=== PATIENT | female | born 2000 | race Hispanic/Latino ===

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

== ENCOUNTER 2020-01-14 06:32 | Emergency (ER) | payer OTHER, SELFPAY ==
[2020-01-14 06:44] VITALS: BP 136/85; PULSE 88; RESP 16; TEMP 37.1; O2SAT 99; BMI 25.7
--- NOTE | 2020-01-14 06:55 | ED.NAVMDI ---
HPI - Nausea/Vomiting/Diarrhea General Chief complaint: Nausea/Vomiting/Diarrhea Stated complaint: Light headed, dizziness,Diarrhea, stomach cramps Time Seen by Provider: 01/14/20 06:43 Source: patient Mode of arrival: Family Vehicle History of Present Illness HPI Narrative: 19-year-old presents with 2 weeks of nausea, vomiting for a week, increasing anxiety and general malaise. She states that she has not been eating or drinking in feels dizzy when she stands up. She was supposed to start her period on January 03, had some spotting on January 06 think continues to have some spotting that is not even requiring panty liners according to her. Apparently she had a miscarriage last summer with subsequent depression followed by some counseling and she feels like she has moved past at issue. On presentation today she has a dramatic affect of behavior with significant hyperventilation and poor eye contact. She was seen by her primary care physician on Sunday who suggested a watch and wait approach, she was seen at [facility] emergency room yesterday with labs fluids Zofran and a reassurance that all was well in presents here today with similar complaints. She reports no fevers, no cough, no lower extremity edema. She states that after the Zofran wore off yesterday she was not nauseated but she was worried she might be so she still did not eat anything yesterday. With the decreased eating she has had decreased bowel movements but no specific constipation or diarrhea. With the vomitus some of it has been somewhat bilious there has been no blood. Related Data Previous Rx's Medication Instructions Recorded albuterol sulfate 90 mcg/actuation 2 puff INHALATION Q4-6H PRN #8 gram 11/02/19 aerosol inhaler azithromycin 250 mg tablet See Rx Instructions PO .COMPLEX #6 11/02/19 tab inhalational spacing device #1 each 11/02/19 Allergies Allergy/AdvReac Type Severity Reaction Status Date / Time Penicillins Allergy Intermediate trouble Verified 11/02/19 12:02 breathing Review of Systems Review of Systems Narrative: Pertinent positive and negative findings as per HPI significant overall anxiety, unclear the source of her anxiety Remainder of review of systems is otherwise unremarkable for Constitutional: weakness ENT: No sore throat, neck pain, ear pain CV: Chest pain, palpitations, dyspnea on exertion Respiratory: Cough, wheeze, MS: Muscle weakness, numbness, Skin: Rashes, nonhealing lesions Neuro: Syncope, Endocrine: heat or cold intolerance, very dry skin Heme: Easy bruising or bleeding Allergy: Seasonal rhinorrhea, itchy eyes Patient History Social History Smoking Status: Never smoker Smoking Status: Never smoker alcohol intake frequency: 0-2 drinks per day Substance Use Type: does not use Exam Initial Vital Signs Initial Vital Signs: Vital Signs Temperature 98.7 F 01/14/20 06:44 Pulse Rate 88 01/14/20 06:44 Respiratory Rate 16 01/14/20 06:44 Blood Pressure 136/85 01/14/20 06:44 Pulse Oximetry 99 01/14/20 06:44 Course Orders Ordered: Discontinued Medications Sodium Chloride (Normal Saline 0.9%) 1,000 mls @ 1,000 mls/hr IV BOLUS ONE Stop: 01/14/20 07:59 Last Infusion: 01/14/20 09:05 Dose: 0 mls/hr Documented by: Admin: 01/14/20 07:39 Dose: 1,000 mls/hr Documented by: TOÑA Lorazepam (Ativan) 0.5 mg IV NOW ONE Stop: 01/14/20 07:01 Last Admin: 01/14/20 07:41 Dose: 0.5 mg Documented by: TOÑA Ondansetron HCl (Zofran) 4 mg IV NOW ONE Stop: 01/14/20 07:01 Last Admin: 01/14/20 07:41 Dose: 4 mg Documented by: TOÑA Vital Signs Vital signs: Vital Signs - 8 hr 01/14/20 06:44 Temperature 98.7 F Pulse Rate 88 Respiratory Rate 16 Blood Pressure 136/85 Pulse Oximetry 99 MDM - Nausea/Vomiting/Diarrhea Lab Data Lab results narrative: Urine test is negative Result diagrams: 01/14/20 07:30 01/14/20 07:30 Labs: Lab Results 01/14/20 01/14/20 Range/Units 07:30 07:30 WBC 4.4 L (4.5-11.0) X10^3/uL RBC 4.78 (4.0-5.2) X10^6/uL Hgb 14.3 (12.0-16.0) g/dL Hct 42.9 (36-46) % MCV 89.9 (80-100) fL MCH 29.9 (26-34) PG MCHC 33.3 (30-36) % RDW 13.5 (11.6-14.8) % Plt Count 253 (150-400) X10^3/uL Neut % (Auto) 55.0 (50-75) % Lymph % (Auto) 34.6 (25-40) % Esmeralda % (Auto) 8.3 (3-14) % Eos % (Auto) 1.4 L (2-4) % Baso % (Auto) 0.7 (0-2) % Neut # (Auto) 2400 (7511-4726) /uL Lymph # (Auto) 1500 (7168-3015) /uL Esmeralda # (Auto) 400 (0-900) /uL Eos # (Auto) 100 (0-450) /uL Baso # (Auto) 0 (0-100) /uL Sodium 141 (137-145) mmol/L Potassium 3.8 (3.4-5.1) mmol/L Chloride 110 H (98-107) mmol/L Carbon Dioxide 22 (22-32) mmol/L BUN 7 (7-17) mg/dL Creatinine 0.76 (0.52-1.04) mg/dL Estimated GFR > 60.0 (>60) mL/min BUN/Creatinine Ratio 9.2 (6-22) Glucose 101 H (70-100) mg/dL Calcium 10.1 (8.4-10.2) mg/dL Total Bilirubin 0.7 (0.2-1.3) mg/dL AST 22 (14-36) IU/L ALT 13 (<35) IU/L Alkaline Phosphatase 52 (38-126) U/L Total Protein 8.2 (6.3-8.2) g/dL Albumin 4.9 (3.5-5.0) g/dL Globulin 3.3 (1.7-4.1) g/dL Albumin/Globulin Ratio 1.5 (1.0-2.8) Point of Care Testing Test Results Negative Urine Dip Bedside Urine Glucose Negative Bedside Urine Bilirubin - Negative Bedside Urine Ketone - Negative Urine Specific [place] 1.010 Bedside Urine Occult Blood +/- Bedside Urine pH 6.0 Bedside Urine Protein - Negative Bedside Urine Urobilinogen - Negative Bedside Urine Nitrite - Negative Bedside Urine Leukocytes - Negative Esterase Discharge Plan Departure Patient Disposition: Home Clinical Impression: Lightheadedness Discharge Date/Time: 01/14/20 09:11 Instructions: DI for Dizziness-Nonvertigo Activity Restrictions/Additional Instructions: Follow-up with your primary care physician in the next week if her symptoms have not resolved. Your labs do not show any major abnormalities today. Return to the ER for fevers greater 100.4 F, new chest pain, shortness of breath, passing out, persistent vomiting, black or bloody stools or other new or concerning symptoms. Prescriptions: No Action azithromycin 250 mg tablet See Rx Instructions PO .COMPLEX Qty: 6 RF: 0 albuterol sulfate 90 mcg/actuation HFA aerosol inhaler 2 puff INHALATION Q4-6H PRN (Reason: shortness of breath or wheezing) Qty: 8 RF: 0 (DME) Aerochamber MV Spacer See Rx Instructions .ROUTE .MEDSUPPLY Qty: 1 RF: 0 Stand Alone Forms: Work Release Note
[2020-01-14 07:38] LABS: Add Manual Diff / Slide Review NO; Basophils Absolute Auto 0 /uL (0-100); Basophils Percent Auto 0.7 % (0-2); Eosinophils Absolute Auto 100 /uL (0-450); Eosinophils Percent Auto 1.4 % (2-4); Hematocrit 42.9 % (36-46); Hemoglobin 14.3 g/dL (12.0-16.0); Lymphocytes Absolute Auto 1500 /uL (1100-4500); Lymphocytes Percent Auto 34.6 % (25-40); Mean Corpuscular HGB Conc 33.3 % (30-36); Mean Corpuscular Hemoglobin 29.9 PG (26-34); Mean Corpuscular Volume 89.9 fL (80-100); Monocytes Absolute Auto 400 /uL (0-900); Monocytes Percent Auto 8.3 % (3-14); Neutrophils Absolute Auto 2400 /uL (1500-7000); Platelet Count 253 X10^3/uL (150-400); Red Blood Cell Count 4.78 X10^6/uL (4.0-5.2); Red Cell Distribution Width 13.5 % (11.6-14.8); White Blood Cell Count 4.4 X10^3/uL (4.5-11.0)
[2020-01-14] MEDS: SODIUM CHLORIDE 0.9% 1,000 ML 1000 ML IV (07:39)
[2020-01-14] MEDS: LORazepam 2 MG/ML INJ 0.5 MG IV (07:41)
[2020-01-14] MEDS: ONDANSETRON 4 MG/2 ML INJ IV (07:41)
[2020-01-14 07:53] LABS: Alanine Aminotransferase 13 IU/L (<35); Albumin 4.9 g/dL (3.5-5.0); Albumin Globulin Ratio 1.5 (1.0-2.8); Alkaline Phosphatase 52 U/L (38-126); Aspartate Aminotransferase 22 IU/L (14-36); BUN Creatinine Ratio 9.2 (6-22); Bilirubin Total 0.7 mg/dL (0.2-1.3); Blood Urea Nitrogen 7 mg/dL (7-17); Calcium 10.1 mg/dL (8.4-10.2); Carbon Dioxide 22 mmol/L (22-32); Chloride 110 mmol/L (98-107); Estimated Glomerular Filt Rate > 60.0 mL/min (>60); Globulin 3.3 g/dL (1.7-4.1); Glucose 101 mg/dL (70-100); HEMOLYSIS < 15 (0-50); Potassium 3.8 mmol/L (3.4-5.1); Sodium 141 mmol/L (137-145); Total Protein 8.2 g/dL (6.3-8.2)
[2020-01-14 09:09] VITALS: BP 106/69; PULSE 88; RESP 18; O2SAT 97
== END 2020-01-14 09:11 | disposition home or self-care (01) ==
PROVIDERS: Emergency Medicine; Emergency Provider Emergency Medicine
DX: R42 Dizziness and giddiness (principal); R11.2 Nausea with vomiting, unspecified; F41.9 Anxiety disorder, unspecified
CPT/HCPCS: 80053; 81003; 81025; 85025; 96361; 96374; 96375; 99284; J2060; J2405

== ENCOUNTER 2020-08-21 10:57 | Emergency (ER) | payer OTHER, SELFPAY ==
[2020-08-21 11:18] VITALS: BP 122/71; PULSE 83; RESP 16; TEMP 36.8; O2SAT 100; BMI 21.5
--- NOTE | 2020-08-21 12:44 | ED.NAVMDI ---
HPI - Nausea/Vomiting/Diarrhea <Juan CROW RousseauP - Last Filed: 08/21/20 15:23> General Chief complaint: Nausea/Vomiting/Diarrhea Stated complaint: 12WKS , VOMITING, DEHYDRATED Time Seen by Provider: 08/21/20 11:59 Source: patient Mode of arrival: Ambulatory Limitations: no limitations History of Present Illness HPI Narrative: This is a 19-year-old female, nonsmoker, who has past medical history significant for hypothyroidism and is currently 12 week EGA with presents to ED with chief complain of nausea and vomiting. Patient reports she was diagnosed with hyperemesis gravidarum around 8 week EGA and since then she has frequent nausea. She reports vomiting has eased up at this time but her symptoms varies and times she is unable to tolerate food or liquid with vomiting. She was prescribed with Zofran by her primary care physician and had used this 2 days ago the last. Patient also reports slight cramping discomfort in bilateral lower abdomen without vaginal bleeding. Patient denies urinary symptoms. Patient has occasional loose stool. Patient reports associated symptoms as headaches and dizziness. Patient denies chest pain but occasional short of breath when she feels dizzy and dehydrated. Patient reports her temperature runs around 99-99.5 F but no fever. She denies chills, cough, sore throat, body aches, runny nose. She has been trying to hydrate herself with water and electrolyte drinks but it has been difficulty keeping up. Patient has been off thyroid medication for last 2 weeks after the thyroid hormone testing per chip tuner and has follow-up appointment next week. Patient sees Dr. Kirkpatrick (chip tuner) and Dr. Castillo at [facility]. Related Data Previous Rx's Medication Instructions Recorded albuterol sulfate 90 mcg/actuation 2 puff INHALATION Q4-6H PRN #8 gram 11/02/19 aerosol inhaler inhalational spacing device #1 each 11/02/19 Allergies Allergy/AdvReac Type Severity Reaction Status Date / Time amoxicillin Allergy Intermediate Verified 08/21/20 11:18 Penicillins Allergy Intermediate trouble Verified 08/21/20 11:17 breathing Review of Systems <CROW MartinezP - Last Filed: 08/21/20 15:23> Review of Systems Narrative: General: Denies fever, chills, fatigue, malaise, sweats. HEENT: Denies sinus pain, ear pain, sore throat, difficulty swallowing, (+) dizziness. Respiratory: Denies (+) occasional dyspnea when feeling dehydrated, cough, wheezing, hemoptysis, sputum. Cardiovascular: Denies chest pain, palpitations, orthopnea, edema. Gastrointestinal: See HPI : Denies dysuria, frequency, incontinence, hematuria, urinary retention. Musculoskeletal: Denies weakness, joint pain or bony pain. Skin: Denies rash, skin lesions, or other. Neurologic: Denies weakness, (+) headache, numbness, change in speech, confusion, seizures, incoordination. Psychiatric: No concerning psychosocial issues. 12-point review of systems is negative except for those stated above. Patient History <CRYSTAL Martinez - Last Filed: 08/21/20 15:23> Medical History (Updated 08/21/20 @ 14:47 by CRYSTAL Martinez) Hypothyroidism Social History Smoking Status: Never smoker Smoking Status: Never smoker alcohol intake frequency: 0-2 drinks per day Substance Use Type: marijuana (Does not use since ) Exam <CRYSTAL Martinez - Last Filed: 08/21/20 15:23> Narrative Exam Narrative: GEN: Alert, oriented x 3, well appearing and nourished, and in no acute distress. Head: Normal cephalic, atraumatic. No scalp or temporal tenderness, palpable mass or rash. EYES: Pupils are equal, round, and reactive to light and accommodation. Extraocular muscles are intact bilaterally. There is no subconjunctival hemorrhage, exudate and sclera non-icteric. ENT: Hearing grossly intact. Nose without bleeding, purulent discharge or deviation. Mucous membrane moist, no mucosal lesion. Throat without erythema, tonsillar hypertrophy or exudate. Uvula in midline, airway patent. Neck: Trachea in midline. No JVD, non-tender without lymphadenopathy. No masses or thyroid megaly. Supple, non-tender and no meningeal signs. CARDIAC: Normal regular rate and rhythm without murmurs, gallops, or rubs. No chest wall tenderness. No peripheral edema, cyanosis or pallor. Capillary refill is less than 2 seconds. RESPIRATORY: Lungs are clear to auscultate bilaterally. No cough, wheezes, rales, or rhonchi. No stridor, respiratory distress, increase work of breathing, or accessary muscle used. ABD: Abdomen soft, nontender and non-distended. No guarding or rebound tenderness to palpate. Bowel sounds are normal in all 4 quadrants. There is no palpable masses or organomegaly. FHT by dopler 162 bpm. EXT: Full painless ROM of all extremities with no loss of sensation, strength, effusion or edema. SKIN: Warm, dry, normal color for patient. No erythema, lesions or rash over visible areas. BACK: Nontender without deformity or crepitance. No flank tenderness. NEUROLOGICAL: Alert and oriented to place, time and person. Sensation and motor function intact bilaterally. No facial droops, dysphasia. PSYCHIATRIC: Good judgement and reason, without hallucinations, abnormal affect or abnormal behaviors during the examination. Patient is not suicidal. Initial Vital Signs Initial Vital Signs: Vital Signs Temperature 98.2 F 08/21/20 11:18 Pulse Rate 83 08/21/20 11:18 Respiratory Rate 16 08/21/20 11:18 Blood Pressure 122/71 08/21/20 11:18 Pulse Oximetry 100 08/21/20 11:18 <Abigail Craft DO - Last Filed: 08/22/20 07:18> Initial Vital Signs Initial Vital Signs: Vital Signs Temperature 98.2 F 08/21/20 11:18 Pulse Rate 83 08/21/20 11:18 Respiratory Rate 16 08/21/20 11:18 Blood Pressure 122/71 08/21/20 11:18 Pulse Oximetry 100 08/21/20 11:18 Scores <CRYSTAL Martinez - Last Filed: 08/21/20 15:23> GCS Nate coma scale eye opening: Spontaneous [place] coma scale verbal response: Orientated [place] coma scale motor response: Obey commands Nate coma scale total score: 15 Course <CRYSTAL Martinez - Last Filed: 08/21/20 15:23> Orders Ordered: Discontinued Medications Sodium Chloride (Normal Saline 0.9%) 1,000 mls @ 1,000 mls/hr IV BOLUS ONE Stop: 08/21/20 13:12 Last Infusion: 08/21/20 14:32 Dose: 0 mls/hr Documented by: Admin: 08/21/20 13:34 Dose: 1,000 mls/hr Documented by: JAMIE Ondansetron HCl (Ondansetron 4 Mg/2 Ml Inj) 4 mg IV NOW ONE Stop: 08/21/20 12:14 Last Admin: 08/21/20 13:34 Dose: 4 mg Documented by: JAMIE Reevaluation(s) Reevaluation #1: Patient reports nausea has improved at this time. Ice chips and juice provided for p.o. challenge. Time: 14:05 Vital Signs Vital signs: Vital Signs - 8 hr 08/21/20 11:18 08/21/20 13:00 08/21/20 13:30 Temperature 98.2 F Pulse Rate 83 63 69 Respiratory Rate 16 Blood Pressure 122/71 108/64 101/59 L Pulse Oximetry 100 100 100 08/21/20 14:00 08/21/20 14:30 Temperature Pulse Rate 82 70 Respiratory Rate 16 16 Blood Pressure 110/65 106/61 Pulse Oximetry 100 100 <Abigail Craft DO - Last Filed: 08/22/20 07:18> Orders Ordered: Discontinued Medications Sodium Chloride (Normal Saline 0.9%) 1,000 mls @ 1,000 mls/hr IV BOLUS ONE Stop: 08/21/20 13:12 Last Infusion: 08/21/20 14:32 Dose: 0 mls/hr Documented by: Admin: 08/21/20 13:34 Dose: 1,000 mls/hr Documented by: JAMIE Ondansetron HCl (Ondansetron 4 Mg/2 Ml Inj) 4 mg IV NOW ONE Stop: 08/21/20 12:14 Last Admin: 08/21/20 13:34 Dose: 4 mg Documented by: JAMIE Vital Signs Vital signs: Vital Signs - 8 hr 08/21/20 11:18 08/21/20 13:00 08/21/20 13:30 Temperature 98.2 F Pulse Rate 83 63 69 Respiratory Rate 16 Blood Pressure 122/71 108/64 101/59 L Pulse Oximetry 100 100 100 08/21/20 14:00 08/21/20 14:30 Temperature Pulse Rate 82 70 Respiratory Rate 16 16 Blood Pressure 110/65 106/61 Pulse Oximetry 100 100 MDM - Nausea/Vomiting/Diarrhea <Juan Hilario-Oras [employer]PERATOR - Last Filed: 08/21/20 15:23> Differential Diagnosis Differential diagnosis: Likely dehydration and other (Hyperemesis gravidarum, UTI, electrolytes imbalance) Medical Records Attestation: I reviewed the patient's medical records. Lab Data Attestation: I reviewed the patient's lab results. Result diagrams: 08/21/20 13:17 08/21/20 13:17 Labs: Lab Results 08/21/20 08/21/20 08/21/20 Range/Units 13:17 13:17 13:17 WBC 7.4 (4.5-11.0) X10^3/uL RBC 4.51 (4.0-5.2) X10^6/uL Hgb 13.4 (12.0-16.0) g/dL Hct 39.7 (36-46) % MCV 88.0 (80-100) fL MCH 29.6 (26-34) PG MCHC 33.7 (30-36) % RDW 13.2 (11.6-14.8) % Plt Count 240 (150-400) X10^3/uL Neut % (Auto) 74.2 (50-75) % Lymph % (Auto) 20.7 L (25-40) % [place] % (Auto) 4.5 (3-14) % Eos % (Auto) 0.3 L (2-4) % Baso % (Auto) 0.3 (0-2) % Neut # (Auto) 5500 (9425-3273) /uL Lymph # (Auto) 1500 (5473-9893) /uL [place] # (Auto) 300 (0-900) /uL Eos # (Auto) 0 (0-450) /uL Baso # (Auto) 0 (0-100) /uL Sodium 134 L (137-145) mmol/L Potassium 3.8 (3.4-5.1) mmol/L Chloride 103 (98-107) mmol/L Carbon Dioxide 24 (22-32) mmol/L BUN 8 (7-17) mg/dL Creatinine 0.43 L (0.52-1.04) mg/dL Estimated GFR > 60.0 (>60) mL/min BUN/Creatinine Ratio 18.6 (6-22) Glucose 79 (70-100) mg/dL Calcium 9.1 (8.4-10.2) mg/dL Total Bilirubin 0.4 (0.2-1.3) mg/dL AST 20 (14-36) IU/L ALT 12 (<35) IU/L Alkaline Phosphatase 37 L (38-126) U/L Total Protein 7.1 (6.3-8.2) g/dL Albumin 4.0 (3.5-5.0) g/dL Globulin 3.1 (1.7-4.1) g/dL Albumin/Globulin Ratio 1.3 (1.0-2.8) Lipase 43 (23-300) U/L COVID-19 PCR (Negative) 08/21/20 Range/Units 14:02 WBC (4.5-11.0) X10^3/uL RBC (4.0-5.2) X10^6/uL Hgb (12.0-16.0) g/dL Hct (36-46) % MCV (80-100) fL MCH (26-34) PG MCHC (30-36) % RDW (11.6-14.8) % Plt Count (150-400) X10^3/uL Neut % (Auto) (50-75) % Lymph % (Auto) (25-40) % Jewell % (Auto) (3-14) % Eos % (Auto) (2-4) % Baso % (Auto) (0-2) % Neut # (Auto) (8140-5431) /uL Lymph # (Auto) (9146-6464) /uL Jewell # (Auto) (0-900) /uL Eos # (Auto) (0-450) /uL Baso # (Auto) (0-100) /uL Sodium (137-145) mmol/L Potassium (3.4-5.1) mmol/L Chloride (98-107) mmol/L Carbon Dioxide (22-32) mmol/L BUN (7-17) mg/dL Creatinine (0.52-1.04) mg/dL Estimated GFR (>60) mL/min BUN/Creatinine Ratio (6-22) Glucose (70-100) mg/dL Calcium (8.4-10.2) mg/dL Total Bilirubin (0.2-1.3) mg/dL AST (14-36) IU/L ALT (<35) IU/L Alkaline Phosphatase (38-126) U/L Total Protein (6.3-8.2) g/dL Albumin (3.5-5.0) g/dL Globulin (1.7-4.1) g/dL Albumin/Globulin Ratio (1.0-2.8) Lipase (23-300) U/L COVID-19 PCR Negative (Negative) Point of Care Testing Test Results Positive Urine Dip Bedside Urine Glucose Negative Bedside Urine Bilirubin - Negative Bedside Urine Ketone +/- 5 Urine Specific [place] 1.025 Bedside Urine Occult Blood - Negative Bedside Urine pH 6.0 Bedside Urine Protein +/- 15 Bedside Urine Urobilinogen - Negative Bedside Urine Nitrite - Negative Bedside Urine Leukocytes - Negative Esterase MDM Narrative Medical decision making narrative: 19-year-old female who is currently 19 weeks +3 day EGA with presents to ED with ongoing nausea and occasional vomiting since 8th week EGA. Patient had used Zofran 2 days ago but without much improvement and she is here reporting feeling dehydrated and could not keep with hydration with water and electrolyte drink with symptoms of lightheadedness and headache. Patient also reports low abdominal cramping pain without vaginal bleeding. heart tone in 162 beats per minute. Physical exam on abdomen was unremarkable. No leukocytosis. Electrolyte significant for mildly decreased sodium level of 134 with normal kidney function, lipase, LFTs. No indication for UTI but had positive ketones. Since this is 1st visit to [facility] after this initially urine test was ordered for which was positive. Patient was medicated with Zofran, IV fluid 1 L and reports feeling much improved without headache or dizziness. Patient was able to tolerate fluids and ice chips without vomiting. Advised patient to use Zofran as needed and she could up the dose. Also discussed sure today's visit with her primary care physician/OBGYN and consider using vitamin B6 supplements and doxylamine as needed, rica candy as needed. Patient informed usually after 1st trimester nausea improves. Patient advise hydrate adequately with return precautions and she verbalized understanding in agreement with the treatment plan. <Abigail Craft, DO - Last Filed: 08/22/20 07:18> Lab Data Labs: Lab Results 08/21/20 08/21/20 08/21/20 Range/Units 13:17 13:17 13:17 WBC 7.4 (4.5-11.0) X10^3/uL RBC 4.51 (4.0-5.2) X10^6/uL Hgb 13.4 (12.0-16.0) g/dL Hct 39.7 (36-46) % MCV 88.0 (80-100) fL MCH 29.6 (26-34) PG MCHC 33.7 (30-36) % RDW 13.2 (11.6-14.8) % Plt Count 240 (150-400) X10^3/uL Neut % (Auto) 74.2 (50-75) % Lymph % (Auto) 20.7 L (25-40) % Jewell % (Auto) 4.5 (3-14) % Eos % (Auto) 0.3 L (2-4) % Baso % (Auto) 0.3 (0-2) % Neut # (Auto) 5500 (3226-8597) /uL Lymph # (Auto) 1500 (4378-5157) /uL [place] # (Auto) 300 (0-900) /uL Eos # (Auto) 0 (0-450) /uL Baso # (Auto) 0 (0-100) /uL Sodium 134 L (137-145) mmol/L Potassium 3.8 (3.4-5.1) mmol/L Chloride 103 (98-107) mmol/L Carbon Dioxide 24 (22-32) mmol/L BUN 8 (7-17) mg/dL Creatinine 0.43 L (0.52-1.04) mg/dL Estimated GFR > 60.0 (>60) mL/min BUN/Creatinine Ratio 18.6 (6-22) Glucose 79 (70-100) mg/dL Calcium 9.1 (8.4-10.2) mg/dL Total Bilirubin 0.4 (0.2-1.3) mg/dL AST 20 (14-36) IU/L ALT 12 (<35) IU/L Alkaline Phosphatase 37 L (38-126) U/L Total Protein 7.1 (6.3-8.2) g/dL Albumin 4.0 (3.5-5.0) g/dL Globulin 3.1 (1.7-4.1) g/dL Albumin/Globulin Ratio 1.3 (1.0-2.8) Lipase 43 (23-300) U/L COVID-19 PCR (Negative) 08/21/20 Range/Units 14:02 WBC (4.5-11.0) X10^3/uL RBC (4.0-5.2) X10^6/uL Hgb (12.0-16.0) g/dL Hct (36-46) % MCV (80-100) fL MCH (26-34) PG MCHC (30-36) % RDW (11.6-14.8) % Plt Count (150-400) X10^3/uL Neut % (Auto) (50-75) % Lymph % (Auto) (25-40) % [place] % (Auto) (3-14) % Eos % (Auto) (2-4) % Baso % (Auto) (0-2) % Neut # (Auto) (3109-4448) /uL Lymph # (Auto) (9653-9405) /uL Jewell # (Auto) (0-900) /uL Eos # (Auto) (0-450) /uL Baso # (Auto) (0-100) /uL Sodium (137-145) mmol/L Potassium (3.4-5.1) mmol/L Chloride (98-107) mmol/L Carbon Dioxide (22-32) mmol/L BUN (7-17) mg/dL Creatinine (0.52-1.04) mg/dL Estimated GFR (>60) mL/min BUN/Creatinine Ratio (6-22) Glucose (70-100) mg/dL Calcium (8.4-10.2) mg/dL Total Bilirubin (0.2-1.3) mg/dL AST (14-36) IU/L ALT (<35) IU/L Alkaline Phosphatase (38-126) U/L Total Protein (6.3-8.2) g/dL Albumin (3.5-5.0) g/dL Globulin (1.7-4.1) g/dL Albumin/Globulin Ratio (1.0-2.8) Lipase (23-300) U/L COVID-19 PCR Negative (Negative) Point of Care Testing Test Results Positive Urine Dip Bedside Urine Glucose Negative Bedside Urine Bilirubin - Negative Bedside Urine Ketone +/- 5 Urine Specific [place] 1.025 Bedside Urine Occult Blood - Negative Bedside Urine pH 6.0 Bedside Urine Protein +/- 15 Bedside Urine Urobilinogen - Negative Bedside Urine Nitrite - Negative Bedside Urine Leukocytes - Negative Esterase Discharge Plan Departure Patient Disposition: Home Clinical Impression: Nausea and vomiting during Instructions: Nausea of (Alternative Therapy), DI for Hyperemesis Gravidarum Activity Restrictions/Additional Instructions: You have been diagnosed with [nausea and vomiting during 1st trimester. You were hydrated with IV fluid and received Zofran 1 dose. Will to tolerate ice chips and clear liquid ED. mildly low in sodium level which you have received replacement through IV fluid. You can use Zofran as needed up to 8 mg for severe nausea. COVID test was negative and no indications for urinary tract infection]. What to do: *Take your medications as directed. *Follow up with your primary care provider in 2-3 days, call for an appointment. Let them know you were seen in the ED and that we asked you to be seen in follow up. *Return to ED if you have any new, worsening, or concerning symptoms, such as [chest pain, breathing difficulty, unable to tolerate fluids, feeling severely dehydrated, vaginal bleeding, abdominal pain or any acute concerns]. Prescriptions: No Action albuterol sulfate 90 mcg/actuation HFA aerosol inhaler 2 puff INHALATION Q4-6H PRN (Reason: shortness of breath or wheezing) Qty: 8 RF: 0 (DME) Aerochamber MV Spacer See Rx Instructions .ROUTE .MEDSUPPLY Qty: 1 RF: 0 Referrals: Zee Juan MD [Physician] - <Abigail Craft DO - Last Filed: 08/22/20 07:18> Cosign ED Attending Pam Attestation: I was immediately available in the department for consultation. Documentation has been reviewed. I agree with assessment and plan.
[2020-08-21 13:00] VITALS: BP 108/64; PULSE 63; O2SAT 100
[2020-08-21 13:27] LABS: Add Manual Diff / Slide Review NO; Basophils Absolute Auto 0 /uL (0-100); Basophils Percent Auto 0.3 % (0-2); Eosinophils Absolute Auto 0 /uL (0-450); Eosinophils Percent Auto 0.3 % (2-4); Hematocrit 39.7 % (36-46); Hemoglobin 13.4 g/dL (12.0-16.0); Lymphocytes Absolute Auto 1500 /uL (1100-4500); Lymphocytes Percent Auto 20.7 % (25-40); Mean Corpuscular HGB Conc 33.7 % (30-36); Mean Corpuscular Hemoglobin 29.6 PG (26-34); Monocytes Absolute Auto 300 /uL (0-900); Monocytes Percent Auto 4.5 % (3-14); Neutrophils Absolute Auto 5500 /uL (1500-7000); Neutrophils Percent Auto 74.2 % (50-75); Platelet Count 240 X10^3/uL (150-400); Red Blood Cell Count 4.51 X10^6/uL (4.0-5.2); Red Cell Distribution Width 13.2 % (11.6-14.8); White Blood Cell Count 7.4 X10^3/uL (4.5-11.0)
[2020-08-21 13:30] VITALS: BP 101/59; PULSE 69; O2SAT 100
[2020-08-21] MEDS: SODIUM CHLORIDE 0.9% 1,000 ML 1000 ML IV (13:34)
[2020-08-21] MEDS: ONDANSETRON 4 MG/2 ML INJ IV (13:34)
[2020-08-21 13:39] LABS: Alanine Aminotransferase 12 IU/L (<35); Albumin Globulin Ratio 1.3 (1.0-2.8); Alkaline Phosphatase 37 U/L (38-126); Aspartate Aminotransferase 20 IU/L (14-36); BUN Creatinine Ratio 18.6 (6-22); Bilirubin Total 0.4 mg/dL (0.2-1.3); Blood Urea Nitrogen 8 mg/dL (7-17); Calcium 9.1 mg/dL (8.4-10.2); Carbon Dioxide 24 mmol/L (22-32); Chloride 103 mmol/L (98-107); Estimated Glomerular Filt Rate > 60.0 mL/min (>60); Globulin 3.1 g/dL (1.7-4.1); Glucose 79 mg/dL (70-100); HEMOLYSIS < 15 (0-50); Lipase 43 U/L (23-300); Potassium 3.8 mmol/L (3.4-5.1); Sodium 134 mmol/L (137-145); Total Protein 7.1 g/dL (6.3-8.2)
[2020-08-21 14:00] VITALS: BP 110/65; PULSE 82; RESP 16; O2SAT 100
[2020-08-21 14:23] LABS: COVID19 -Nasal RAPID Negative (Negative)
[2020-08-21 14:30] VITALS: BP 106/61; PULSE 70; RESP 16; O2SAT 100
== END 2020-08-21 15:02 | disposition home or self-care (01) ==
PROVIDERS: Emergency Provider Nurse Practitioner Family
DX: O21.0 Mild hyperemesis gravidarum (principal); Z3A.12 12 weeks gestation of pregnancy; E03.9 Hypothyroidism, unspecified
CPT/HCPCS: 36415; 80053; 81003; 81025; 83690; 85025; 87635; 96361; 96374; 99281; 99284; J2405

== ENCOUNTER → 2025-04-08 08:46 | Outpatient (CLI) | payer OTHER, SELFPAY ==
[2025-04-08 11:33] LABS: Influenza A - CEPHEID Flu A NEGATIVE (NEGATIVE); Influenza B - CEPHEID Flu B NEGATIVE (NEGATIVE)
[2025-04-08 12:01] LABS: COVID-19 CEPHEID 4-PLEX PCR POSITIVE (Negative)
== END ==
PROVIDERS: Visit Provider Family Medicine
DX: R05.9 Cough, unspecified (principal); J34.89 Other specified disorders of nose and nasal sinuses
CPT/HCPCS: 87637

== ENCOUNTER → 2025-07-19 16:11 | Outpatient (CLI) | payer OTHER, SELFPAY ==
[2025-07-19 17:16] LABS: Influenza A - CEPHEID Flu A NEGATIVE (NEGATIVE); Influenza B - CEPHEID Flu B NEGATIVE (NEGATIVE)
[2025-07-19 17:33] LABS: COVID-19 CEPHEID 4-PLEX PCR Negative (Negative)
== END ==
PROVIDERS: Visit Provider Chiropractor
DX: J02.9 Acute pharyngitis, unspecified (principal)
CPT/HCPCS: 87637